=== PATIENT | female | born 1965 | race Caucasian/White ===

== ENCOUNTER 2017-01-27 11:37 | Emergency (ER) | payer OTHER ==
[~2017-01-27] VITALS: Ht 165.1 cm; Wt 91.5 kg
[2017-01-27] MEDS ORDERED: SODIUM CHLORIDE FLUSH 10ML SYR IVF ONE (12:30)
[2017-01-27] MEDS ORDERED: SODIUM CHLORIDE 0.9% 1,000ML IVBOLUS ONE (12:30)
[2017-01-27] MEDS ORDERED: ONDANSETRON 2MG/ML, 2ML IVPush ONE (12:30)
[2017-01-27] MEDS ORDERED: MORPHINE SULFATE 4 MG/ML, 1ML IVPush PRN (13:30)
[2017-01-27 13:36] LABS: BLOOD UREA NITROGEN 16 mg/dL (7-18)
[2017-01-27 13:37] LABS: ASPARTATE AMINO TRANSFERASE 16 U/L (15-37)
[2017-01-27] MEDS ORDERED: ONDANSETRON 2MG/ML, 2ML ONE (14:08)
[2017-01-27] MEDS ORDERED: MORPHINE SULFATE 4 MG/ML, 1ML ONE (14:08)
[2017-01-27] MEDS ORDERED: OMNIPAQUE 350 MG/ML, 100ML BOTTLE ONE (17:35)
[2017-01-27 19:16] VITALS: BP 156/91
== END 2017-01-27 19:19 | disposition home or self-care (01) ==
LOC: ED 19:13
DX: R10.11 Right upper quadrant pain (principal); R10.13 Epigastric pain; R11.0 Nausea; I50.9 Heart failure, unspecified; Z88.2 Allergy status to sulfonamides; Z87.891 Personal history of nicotine dependence
CPT/HCPCS: 36415; 74177; 76700; 80053; 81003; 83690; 84703; 85025; 85610; 96360; 96361; 99285; J7030; Q9967

== ENCOUNTER 2017-01-28 14:13 | Inpatient (IN) | payer OTHER ==
[~2017-01-28] VITALS: Ht 167.6 cm; Wt 94.0 kg
[~2017-01-28 14:13] MED LIST: CEFOTETAN 2 GM ONE; DEXAMETHASONE 4 MG/ML, 1ML ONE; ONDANSETRON 2MG/ML, 2ML ONE; PROPOFOL 10 MG/ML, 20ML ONE; ROCURONIUM 10 MG/ML ONE
[2017-01-28] MEDS ORDERED: ONDANSETRON ODT 4 MG PO ONE (15:00)
[2017-01-28 15:20] LABS: ASPARTATE AMINO TRANSFERASE 13 U/L (15-37); BLOOD UREA NITROGEN 13 mg/dL (7-18)
[2017-01-28] MEDS ORDERED: HYDROmorphone 1 MG/ML, 1ML ONE ×2 (15:20→16:46)
[2017-01-28] MEDS ORDERED: ONDANSETRON ODT 4 MG ONE (15:20)
[2017-01-28] MEDS: HYDROmorphone 1 MG/ML, 1ML IM PRN ×2 (15:25→16:50)
[2017-01-28] MEDS ORDERED: SODIUM CHLORIDE FLUSH 10ML SYR IVF ONE (18:30)
[2017-01-28] MEDS ORDERED: SODIUM CHLORIDE 0.9% 1,000ML IVBOLUS ONE (18:30)
[2017-01-28] MEDS ORDERED: MIDAZOLAM 1 MG/ML, 2ML ONE (19:12)
[2017-01-28] MEDS ORDERED: FENTANYL PF 250 MCG/5ML ONE ×2 (19:12→19:55)
[2017-01-28] MEDS ORDERED: HYDROmorphone 2 MG/ML, 1ML ONE (21:13)
[2017-01-28] MEDS ORDERED: FENTANYL PF 100 MCG/2ML ONE (21:13)
[2017-01-28] MEDS ORDERED: MEPERIDINE/PF 25MG/0.5ML ONE (21:13)
[2017-01-28] MEDS: LABETALOL 5MG/ML, 20ML IVPush PRN ×2 (21:20→21:48)
[2017-01-28] MEDS: CEFOTETAN PMX 1GM/50ML 50 ML IVPB SCH (21:30)
[2017-01-28] MEDS ORDERED: ONDANSETRON 2MG/ML, 2ML IVPush PRN ×2 (21:30→22:00)
[2017-01-28] MEDS ORDERED: ACETAMINOPHEN 325 MG TABLET PO PRN ×2 (21:30→22:00)
[2017-01-28] MEDS ORDERED: PROMETHAZINE 25 MG/ML, 1ML IM PRN (21:30)
[2017-01-28] MEDS ORDERED: ENALAPRILAT 1.25 MG/ML, 2ML IVPush PRN (21:30)
[2017-01-28] MEDS ORDERED: morphine SULFATE 10 MG/ML, 1ML IVPush PRN (21:30)
[2017-01-28] MEDS: FENTANYL PF 100 MCG/2ML IV PRN ×2 (21:36→21:49)
[2017-01-28] MEDS ORDERED: OXYcodone 5 MG/5 ML ORAL.SOL UDC ONE (21:36)
[2017-01-28] MEDS: HYDROmorphone 1 MG/ML, 1ML IV PRN ×3 (21:37→22:02)
[2017-01-28] MEDS ORDERED: HYDROcodone/APAP 7.5-325MG/15ML UDC PO PRN (22:00)
[2017-01-28] MEDS ORDERED: MEPERIDINE/PF 25MG/0.5ML IVPush PRN (22:00)
[2017-01-28] MEDS ORDERED: KETOROLAC 30 MG/1 ML IV PRN (22:00)
[2017-01-28] MEDS ORDERED: KETOROLAC 30 MG/1 ML ONE (22:07)
[2017-01-28 23:05] VITALS: BP 134/85
[2017-01-29] MEDS: D5%-0.45NACL+KCL 20MEQ 1,000 ML IV SCH ×3 (00:46→15:22)
[2017-01-29 01:03] VITALS: BP 116/87
[2017-01-29 03:23] VITALS: BP 118/75
[2017-01-29 05:40] LABS: BLOOD UREA NITROGEN 17 mg/dL (7-18)
[2017-01-29] MEDS: FAMOTIDINE 20 MG/2 ML IVPush SCH ×2 (08:21→21:28)
[2017-01-29] MEDS: CEFOTETAN PMX 1GM/50ML 50 ML IVPB SCH (08:21)
[2017-01-29 08:57] VITALS: BP 126/75
[2017-01-29] MEDS: ENOXAPARIN 30 MG/0.3 ML SQ SCH (15:17)
[2017-01-29 16:00] VITALS: BP 117/75
[2017-01-29] MEDS ORDERED: SODIUM CHLORIDE 0.9%, 500ML IVBOLUS ONE (18:00)
[2017-01-29 19:21] VITALS: BP 120/71
[2017-01-30] MEDS: D5%-0.45NACL+KCL 20MEQ 1,000 ML IV SCH ×4 (00:14→19:40)
[2017-01-30 02:35] VITALS: BP 110/68
[2017-01-30] MEDS: ENOXAPARIN 30 MG/0.3 ML SQ SCH ×2 (03:12→15:32)
[2017-01-30 06:56] VITALS: BP 134/78
[2017-01-30] MEDS: FAMOTIDINE 20 MG/2 ML IVPush SCH ×2 (08:34→21:00)
[2017-01-30 16:00] VITALS: BP 133/75
[2017-01-30 21:26] VITALS: BP 136/74
[2017-01-30] MEDS: FAMOTIDINE 20 MG TABLET PO SCH (22:16)
[2017-01-31] MEDS: D5%-0.45NACL+KCL 20MEQ 1,000 ML IV SCH ×4 (02:20→22:20)
[2017-01-31 02:26] VITALS: BP 129/67
[2017-01-31] MEDS: ENOXAPARIN 30 MG/0.3 ML SQ SCH ×2 (04:17→15:47)
[2017-01-31 07:39] VITALS: BP 121/67
[2017-01-31] MEDS: FAMOTIDINE 20 MG TABLET PO SCH ×2 (08:32→20:26)
[2017-01-31] MEDS: FAMOTIDINE 20 MG/2 ML IVPush SCH ×2 (09:00→20:26)
[2017-01-31 14:30] VITALS: BP 122/67
[2017-01-31] MEDS: CARVEDILOL 12.5 MG TABLET PO SCH (17:53)
[2017-01-31 17:54] VITALS: BP 148/75
[2017-01-31 19:16] VITALS: BP 115/62
[2017-02-01 02:08] VITALS: BP 139/77
[2017-02-01] MEDS: ENOXAPARIN 30 MG/0.3 ML SQ SCH ×2 (03:35→15:48)
[2017-02-01] MEDS: D5%-0.45NACL+KCL 20MEQ 1,000 ML IV SCH ×4 (05:00→19:27)
[2017-02-01] MEDS: CARVEDILOL 12.5 MG TABLET PO SCH ×2 (06:16→18:08)
[2017-02-01 06:56] VITALS: BP 133/73
[2017-02-01] MEDS: FAMOTIDINE 20 MG TABLET PO SCH (09:00)
[2017-02-01] MEDS: FAMOTIDINE 20 MG/2 ML IVPush SCH (09:00)
[2017-02-01] MEDS ORDERED: DIPHENHYDRAMINE 50 MG/ML, 1ML IVPush PRN (10:30)
[2017-02-01] MEDS: MAGNESIUM HYDROXIDE 8%, 30ML UDC PO SCH (10:33)
[2017-02-01] MEDS: DIPHENHYDRAMINE 25 MG CAPSULE PO PRN ×2 (11:14→19:12)
[2017-02-01] MEDS: PANTOPRAZOLE 20MG TABLET PO SCH ×2 (11:14→19:49)
[2017-02-01 15:32] VITALS: BP 145/75
[2017-02-01 18:43] VITALS: BP 141/68
[2017-02-02 01:56] VITALS: BP 128/51
[2017-02-02] MEDS: ENOXAPARIN 30 MG/0.3 ML SQ SCH (02:59)
[2017-02-02] MEDS: D5%-0.45NACL+KCL 20MEQ 1,000 ML IV SCH ×2 (05:22→14:20)
[2017-02-02] MEDS: CARVEDILOL 12.5 MG TABLET PO SCH (05:22)
[2017-02-02 06:50] VITALS: BP 120/63
[2017-02-02] MEDS: MAGNESIUM HYDROXIDE 8%, 30ML UDC PO SCH (07:33)
[2017-02-02] MEDS: PANTOPRAZOLE 20MG TABLET PO SCH (07:33)
[2017-02-02] MEDS: DIPHENHYDRAMINE 25 MG CAPSULE PO PRN (07:34)
[2017-02-02 08:09] VITALS: BP 121/85
[2017-02-02] MEDS ORDERED: CARV12.52 PO (13:40)
[2017-02-02] MEDS ORDERED: HYDR-3241 PO (13:48)
[2017-02-02 14:32] VITALS: BP 135/72
[2017-02-02] MEDS ORDERED: ONDA4TAB7 PO (15:03)
== END 2017-02-02 15:19 | disposition home or self-care (01) | DRG 414 ==
LOC: ED 18:16 → 4NOR 21:14 → DCLOUNGE 02-02 14:40
PROVIDERS: ADMIT Surgery; ATTEND Surgery
PROC: 0DTF0ZZ Resection of Right Large Intestine, Open Approach (ICD-10-PCS; 2017-01-28)
PROC: 0WQF0ZZ Repair Abdominal Wall, Open Approach (ICD-10-PCS; 2017-01-28)
PROC: 0FT40ZZ Resection of Gallbladder, Open Approach (ICD-10-PCS; principal; 2017-01-28 19:00)
DX: K80.10 Calculus of gallbladder with chronic cholecystitis without obstruction (principal); K56.2 Volvulus; I11.0 Hypertensive heart disease with heart failure; I50.9 Heart failure, unspecified; R13.10 Dysphagia, unspecified; Z95.810 Presence of automatic (implantable) cardiac defibrillator; Z88.2 Allergy status to sulfonamides
CPT/HCPCS: 36415; 74176; 80048; 80053; 81001; 83690; 85025; 87086; 88304; 88307; 93005; 96372; J1100; J1170; J1650; J1885; J2250; J2270; J2405; J2704; J3010; Q0162; J3480; J7030; J7040; Q0163; S0028; S0074

== ENCOUNTER 2018-09-22 03:15 | Inpatient (IN) | payer OTHER ==
[2018-09-21 13:47] LABS: MICROSCOPIC INDICATED
[2018-09-21 14:02] LABS: BASOPHILS # (AUTO) 0.03 x10^3/uL (0-0.1); BASOPHILS % (AUTO) 1 % (0-1); EOSINOPHILS # (AUTO) 0.13 x10^3/uL (0-0.4); EOSINOPHILS % (AUTO) 4 % (1-7); LYMPHOCYTES # (AUTO) 0.86 x10^3/uL (1-3.4); LYMPHOCYTES % (AUTO) 24 % (22-44); MD NO; MEAN CORPUSCULAR HEMOGLOBIN 26.2 pg (27.0-34.8); MEAN CORPUSCULAR HGB CONC 33.3 g/dL (32.4-35.8); MEAN CORPUSCULAR VOLUME 78.7 fL (80-100); MEAN PLATELET VOLUME 9.1 fL (7.4-10.4); MONOCYTES # (AUTO) 0.64 x10^3/uL (0.2-0.8); MONOCYTES % (AUTO) 18 % (2-9); NEUTROPHILS # (AUTO) 1.86 x10^3/uL (1.8-6.8); NEUTROPHILS % (AUTO) 53 % (42-75); PLATELET COUNT 122 x10^3/uL (130-400); RED BLOOD COUNT 4.77 x10^6/uL (3.82-5.3); RED CELL DISTRIBUTION WIDTH 19.6 % (9.6-15.2)
[2018-09-21 14:12] LABS: PROTHROMBIN TIME 10.5 Seconds (9.6-11.5)
[2018-09-21 14:14] LABS: ALANINE AMINOTRANSFERASE 25 U/L (12-78); ALBUMIN 3.6 g/dL (3.4-5.0); ANION GAP 6 mmol/L (5-15); CALCIUM 8.5 mg/dL (8.5-10.1); CHLORIDE 108 mmol/L (98-107); CREATININE 0.89 mg/dL (0.55-1.02)
[2018-09-21 14:16] LABS: ALKALINE PHOSPHATASE 126 U/L (45-117); BILIRUBIN,TOTAL 1.1 mg/dL (0.2-1.0); TOTAL PROTEIN 7.4 g/dL (6.4-8.2)
[2018-09-21 14:18] LABS: HEMOGLOBIN A1C 5.8 % (4.2-6.3)
[2018-09-21 14:24] LABS: CULTURE INDICATED? NO
[~2018-09-22] VITALS: Ht 162.6 cm; Wt 105.7 kg
[~2018-09-22 03:15] MED LIST changes: +ASPI81TA45 PO; +CARV12.52 PO; -CEFOTETAN 2 GM ONE; +CLOP75TA52 PO; -DEXAMETHASONE 4 MG/ML, 1ML ONE; +DIGO250T PO; +FURO20TA3 PO; +HYDR-3241 PO; +LISI-167 PO; +ONDA4TAB7 PO; -ONDANSETRON 2MG/ML, 2ML ONE; +PRAV20TA2 PO; -PROPOFOL 10 MG/ML, 20ML ONE; -ROCURONIUM 10 MG/ML ONE; +SPIR25TA5 PO; +VITA1TAB19 PO
[2018-09-22] MEDS ORDERED: INSULIN LISPRO 100 UNITS/ML, PEN SQ-INSULIN SCH (04:00)
[2018-09-22] MEDS ORDERED: CHLORHEXIDINE 15 ML UDC MM SCH (04:00)
[2018-09-22 05:11] VITALS: BP_SYST 116; BP_SYST 133; BP_DIAS 62; BP_DIAS 79
[2018-09-22 07:00] VITALS: BP 115/72
[2018-09-22] MEDS ORDERED: MANNITOL PMX 20% 500 ML IVPB PRN (07:30)
[2018-09-22] MEDS ORDERED: POTASSIUM CHLORIDE 80 MEQ, SODIUM BICARBONATE 8.4% 10 MEQ, MAGNESIUM SULFATE 0.5 GM, LI... IV PRN (07:30)
[2018-09-22] MEDS ORDERED: REGULAR INSULIN 62.5 UNITS in SODIUM CHLORIDE 0.9% 249.375 ML IV PRN ×2 (07:30→11:36)
[2018-09-22] MEDS ORDERED: EPINEPHRINE 2 MG in SODIUM CHLORIDE 0.9% 248 ML IV SCH (07:30)
[2018-09-22] MEDS ORDERED: DEXMEDETOMIDINE 200 MCG in SODIUM CHLORIDE 0.9% 48 ML IV SCH (07:30)
[2018-09-22] MEDS ORDERED: VANCOMYCIN 1,600 MG in SODIUM CHLORIDE 0.9% 250 ML IV PRN (07:30)
[2018-09-22] MEDS ORDERED: ALBUMIN HUMAN 5% 500 ML IV PRN (07:30)
[2018-09-22] MEDS ORDERED: PHENYLEPHRINE 10 MG in SODIUM CHLORIDE 0.9% 249 ML IV PRN ×2 (07:30→11:36)
[2018-09-22] MEDS ORDERED: CEFUROXIME 1.5 GM in SODIUM CHLORIDE 0.9% 50 ML IVPB PRN (07:30)
[2018-09-22] MEDS ORDERED: MIDAZOLAM 10MG/2 ML ONE (07:57)
[2018-09-22] MEDS ORDERED: FENTANYL PF 250 MCG/5ML ONE ×4 (07:57→07:58)
[2018-09-22] MEDS ORDERED: CALCIUM CHLORIDE 10%, 10ML SYR ONE (08:00)
[2018-09-22] MEDS ORDERED: ROCURONIUM 10MG/ML,5ML ONE ×3 (08:03→09:55)
[2018-09-22] MEDS: DOCUSATE 100 MG CAPSULE PO SCH ×2 (09:00→20:54)
[2018-09-22] MEDS: SODIUM CHLORIDE FLUSH 10ML SYR IVF SCH ×2 (09:00→20:54)
[2018-09-22] MEDS ORDERED: MUPIROCIN OINT 2%, 22GM TP SCH (09:00)
[2018-09-22] MEDS ORDERED: PROTAMINE SULFATE 10 MG/ML, 25ML ONE ×2 (09:55)
[2018-09-22] MEDS ORDERED: AMINOCAPROIC ACID 250 MG/ML, 20ML ONE ×2 (09:55)
[2018-09-22] MEDS ORDERED: PROPOFOL 10 MG/ML, 20ML ONE (10:00)
[2018-09-22] MEDS ORDERED: VASOPRESSIN 50 UNIT in SODIUM CHLORIDE 0.9% 247.5 ML IV PRN (11:36)
[2018-09-22] MEDS ORDERED: DEXMEDETOMIDINE 200 MCG in SODIUM CHLORIDE 0.9% 48 ML IV PRN (11:36)
[2018-09-22] MEDS ORDERED: SODIUM CHLORIDE 0.9% 1,000 ML IV PRN (11:36)
[2018-09-22] MEDS ORDERED: DOBUTAMINE 250 MG in SODIUM CHLORIDE 0.9% 230 ML IV PRN (11:36)
[2018-09-22] MEDS ORDERED: NITROGLYCERIN/D5W PMX 250 ML IV PRN (11:36)
[2018-09-22] MEDS ORDERED: ALBUMIN HUMAN 25% 50 ML ONE (11:52)
[2018-09-22] MEDS ORDERED: HEPARIN 1,000 UNITS/ML, 30ML ONE (11:52)
[2018-09-22] MEDS ORDERED: methylPREDNISolone SOD SUCC 125 MG/2 ML ONE (11:52)
[2018-09-22] MEDS ORDERED: LIDOCAINE 2% 100MG/5ML SYRINGE ONE (11:52)
[2018-09-22] MEDS ORDERED: SODIUM BICARBONATE 1 MEQ/ML, 50ML VIAL ONE (11:52)
[2018-09-22] MEDS ORDERED: PROCHLORPERAZINE 5 MG/ML, 2ML IVPush PRN (12:00)
[2018-09-22] MEDS ORDERED: DEXTROSE 50%, 50ML SYRINGE IVPush PRN (12:00)
[2018-09-22] MEDS: MAGNESIUM SULFATE 1 GM in SODIUM CHLORIDE 0.9% 50 ML IVPB SCH ×2 (12:00→13:07)
[2018-09-22] MEDS: KSCALE TO 4.5 IV SCH ×2 (12:00→17:41)
[2018-09-22] MEDS ORDERED: CEFUROXIME 1.5 GM in SODIUM CHLORIDE 0.9% 50 ML IVPB SCH (12:00)
[2018-09-22] MEDS ORDERED: BISACODYL 10 MG SUPP PR PRN (12:00)
[2018-09-22] MEDS ORDERED: LACTATED RINGERS 1,000 ML IV PRN (12:00)
[2018-09-22] MEDS ORDERED: ONDANSETRON 2MG/ML, 2ML IVPush PRN (12:00)
[2018-09-22] MEDS ORDERED: BISACODYL 5 MG EC TABLET PO PRN (12:00)
[2018-09-22] MEDS ORDERED: SODIUM BICARB 8.4%, 50ML SYRINGE IV PRN (12:00)
[2018-09-22] MEDS ORDERED: GLUCAGON 1 MG IM PRN (12:00)
[2018-09-22] MEDS ORDERED: DEXTROSE 4 GM TAB.CHEW PO PRN (12:00)
[2018-09-22] MEDS ORDERED: ACETAMINOPHEN 325 MG TABLET PO PRN (12:00)
[2018-09-22] MEDS ORDERED: ACETAMINOPHEN 650 MG SUPP PR PRN (12:00)
[2018-09-22 12:18] LABS: GLUCOSE BY BLOOD GAS ANALYZER 114 mg/dL (70-110); HEMOGLOBIN BY BLOOD GAS ANALYZ 11.8 g/dL (14.0-18.0); POTASSIUM BY BLOOD GAS ANALYZR 3.5 mmol/L (3.6-5.5)
[2018-09-22 12:41] LABS: INTERNATIONAL NORMALIZED RATIO 1.26 (0.93-1.1); PROTHROMBIN TIME 13.1 Seconds (9.6-11.5)
[2018-09-22] MEDS ORDERED: POTASSIUM CHLORIDE PMX 100 ML IV ONE (13:30)
[2018-09-22] MEDS: EPINEPHRINE 2 MG in SODIUM CHLORIDE 0.9% 248 ML IV PRN (14:42)
[2018-09-22] MEDS: INSULIN LISPRO 100 UNITS/ML, PEN SQ-INSULIN SCH ×2 (17:32→21:16)
[2018-09-22] MEDS: OXYcodone IR 5MG TABLET PO PRN ×2 (17:43→19:13)
[2018-09-22] MEDS: VANCOMYCIN 1,600 MG in SODIUM CHLORIDE 0.9% 250 ML IVPB SCH (18:44)
[2018-09-22] MEDS: HYDROcodone/APAP 5/325 TABLET PO PRN (20:54)
[2018-09-22] MEDS: CEFUROXIME 1.5 GM in SODIUM CHLORIDE 0.9% 50 ML IVPB SCH (21:26)
[2018-09-23] MEDS: EPINEPHRINE 2 MG in SODIUM CHLORIDE 0.9% 248 ML IV PRN (00:24)
[2018-09-23] MEDS: INSULIN LISPRO 100 UNITS/ML, PEN SQ-INSULIN SCH ×6 (00:25→20:43)
[2018-09-23] MEDS: HYDROcodone/APAP 5/325 TABLET PO PRN ×2 (01:18→05:36)
[2018-09-23] MEDS: FENTANYL PF 100 MCG/2ML IVPush PRN ×2 (03:13→06:33)
[2018-09-23 05:49] LABS: BASOPHILS # (AUTO) 0.01 x10^3/uL (0-0.1); BASOPHILS % (AUTO) 0 % (0-1); EOSINOPHILS % (AUTO) 0 % (1-7); LYMPHOCYTES # (AUTO) 1.07 x10^3/uL (1-3.4); LYMPHOCYTES % (AUTO) 9 % (22-44); MD NO; MEAN CORPUSCULAR HEMOGLOBIN 26.5 pg (27.0-34.8); MEAN CORPUSCULAR HGB CONC 33.2 g/dL (32.4-35.8); MEAN CORPUSCULAR VOLUME 79.9 fL (80-100); MEAN PLATELET VOLUME 9.2 fL (7.4-10.4); MONOCYTES # (AUTO) 1.07 x10^3/uL (0.2-0.8); MONOCYTES % (AUTO) 8 % (2-9); NEUTROPHILS # (AUTO) 10.52 x10^3/uL (1.8-6.8); NEUTROPHILS % (AUTO) 83 % (42-75); PLATELET COUNT 148 x10^3/uL (130-400); RED BLOOD COUNT 4.45 x10^6/uL (3.82-5.3); RED CELL DISTRIBUTION WIDTH 19.5 % (9.6-15.2)
[2018-09-23 05:53] LABS: INTERNATIONAL NORMALIZED RATIO 1.07 (0.93-1.1); PROTHROMBIN TIME 11.2 Seconds (9.6-11.5)
[2018-09-23 05:54] LABS: ALBUMIN 3.2 g/dL (3.4-5.0); ANION GAP 7 mmol/L (5-15); CALCIUM 8.1 mg/dL (8.5-10.1); CHLORIDE 110 mmol/L (98-107); CREATININE 0.82 mg/dL (0.55-1.02)
[2018-09-23] MEDS: KSCALE TO 4.5 IV SCH ×2 (06:00)
[2018-09-23] MEDS ORDERED: KETOROLAC 30 MG/1 ML IM PRN (07:30)
[2018-09-23] MEDS: morphine SULFATE 10 MG/ML, 1ML IVPush PRN ×2 (07:33→17:18)
[2018-09-23] MEDS ORDERED: MAGNESIUM HYDROXIDE 8%, 30ML UDC PO PRN (08:00)
[2018-09-23] MEDS: VANCOMYCIN 1,600 MG in SODIUM CHLORIDE 0.9% 250 ML IVPB SCH (08:57)
[2018-09-23] MEDS: WARFARIN MODERAT DOSE PROTOCOL XX SCH (09:00)
[2018-09-23] MEDS: WARFARIN BIOPROSTHETIC VALVE PROTOCOL 2-3 XX SCH (09:00)
[2018-09-23] MEDS: DIGOXIN 0.25 MG TABLET PO SCH (09:11)
[2018-09-23] MEDS: SPIRONOLACTONE 25 MG TABLET PO SCH (09:11)
[2018-09-23] MEDS: DOCUSATE 100 MG CAPSULE PO SCH ×2 (09:11→20:44)
[2018-09-23] MEDS: POTASSIUM CHLORIDE 10 MEQ TABLET.ER PO SCH ×2 (09:11→16:49)
[2018-09-23] MEDS: FUROSEMIDE 20 MG/2 ML IV SCH ×2 (09:11→16:49)
[2018-09-23] MEDS: OXYcodone IR 5MG TABLET PO PRN ×5 (09:12→23:35)
[2018-09-23] MEDS: ASPIRIN 81 MG TABLET EC PO SCH (09:15)
[2018-09-23] MEDS: CARVEDILOL 3.125 MG TABLET PO SCH ×2 (09:15→16:45)
[2018-09-23] MEDS: CEFUROXIME 1.5 GM in SODIUM CHLORIDE 0.9% 50 ML IVPB SCH (10:13)
[2018-09-23] MEDS: MAGNESIUM SULFATE 1 GM in SODIUM CHLORIDE 0.9% 50 ML IVPB SCH (11:55)
[2018-09-23] MEDS ORDERED: WARFARIN 7.5 MG TABLET PO-COUM ONE (18:00)
[2018-09-23] MEDS: PRAVASTATIN 20 MG TABLET PO SCH (20:44)
[2018-09-23] MEDS: SODIUM CHLORIDE FLUSH 10ML SYR IVF SCH (20:44)
[2018-09-24] MEDS: OXYcodone IR 5MG TABLET PO PRN ×6 (02:30→22:28)
[2018-09-24] MEDS: CARVEDILOL 3.125 MG TABLET PO SCH ×2 (05:26→17:42)
[2018-09-24 05:38] LABS: INTERNATIONAL NORMALIZED RATIO 1.02 (0.93-1.1); PROTHROMBIN TIME 10.7 Seconds (9.6-11.5)
[2018-09-24 05:43] LABS: ANION GAP 5 mmol/L (5-15); CHLORIDE 102 mmol/L (98-107); CREATININE 0.76 mg/dL (0.55-1.02)
[2018-09-24 06:32] LABS: MEAN CORPUSCULAR HEMOGLOBIN 25.7 pg (27.0-34.8); MEAN CORPUSCULAR HGB CONC 32.4 g/dL (32.4-35.8); MEAN CORPUSCULAR VOLUME 79.5 fL (80-100); MEAN PLATELET VOLUME 9.2 fL (7.4-10.4); PLATELET COUNT 90 x10^3/uL (130-400); RED BLOOD COUNT 4.09 x10^6/uL (3.82-5.3); RED CELL DISTRIBUTION WIDTH 20.3 % (9.6-15.2)
[2018-09-24 06:33] LABS: MD SCAN
[2018-09-24 06:34] LABS: BASOPHILS # (AUTO) 0.03 x10^3/uL (0-0.1); BASOPHILS % (AUTO) 0 % (0-1); EOSINOPHILS # (AUTO) 0.03 x10^3/uL (0-0.4); EOSINOPHILS % (AUTO) 1 % (1-7); LYMPHOCYTES # (AUTO) 0.95 x10^3/uL (1-3.4); LYMPHOCYTES % (AUTO) 14 % (22-44); MONOCYTES # (AUTO) 0.56 x10^3/uL (0.2-0.8); MONOCYTES % (AUTO) 8 % (2-9); NEUTROPHILS # (AUTO) 5.42 x10^3/uL (1.8-6.8); NEUTROPHILS % (AUTO) 78 % (42-75)
[2018-09-24] MEDS: INSULIN LISPRO 100 UNITS/ML, PEN SQ-INSULIN SCH ×4 (07:00→20:30)
[2018-09-24] MEDS: WARFARIN BIOPROSTHETIC VALVE PROTOCOL 2-3 XX SCH (08:35)
[2018-09-24] MEDS: WARFARIN MODERAT DOSE PROTOCOL XX SCH (08:35)
[2018-09-24] MEDS ORDERED: ENOXAPARIN 40 MG/0.4 ML SQ SCH (09:00)
[2018-09-24] MEDS: POTASSIUM CHLORIDE 10 MEQ TABLET.ER PO SCH ×2 (09:25→17:42)
[2018-09-24] MEDS: DOCUSATE 100 MG CAPSULE PO SCH ×2 (09:25→20:29)
[2018-09-24] MEDS: LISINOPRIL 5 MG TABLET PO SCH (09:25)
[2018-09-24] MEDS: SPIRONOLACTONE 25 MG TABLET PO SCH (09:25)
[2018-09-24] MEDS: ASPIRIN 81 MG TABLET EC PO SCH (09:26)
[2018-09-24] MEDS: DIGOXIN 0.25 MG TABLET PO SCH (09:26)
[2018-09-24] MEDS: FUROSEMIDE 20 MG/2 ML IV SCH ×2 (09:26→17:42)
[2018-09-24] MEDS: SODIUM CHLORIDE FLUSH 10ML SYR IVF SCH ×2 (09:27→20:30)
[2018-09-24 12:44] VITALS: BP 94/65
[2018-09-24] MEDS: MAGNESIUM SULFATE 1 GM in SODIUM CHLORIDE 0.9% 50 ML IVPB SCH (13:04)
[2018-09-24 17:40] VITALS: BP 120/67
[2018-09-24] MEDS ORDERED: WARFARIN 7.5 MG TABLET PO-COUM ONE (18:00)
[2018-09-24 20:06] VITALS: BP 97/58
[2018-09-24] MEDS: PRAVASTATIN 20 MG TABLET PO SCH (20:29)
[2018-09-25 01:31] VITALS: BP 108/68
[2018-09-25] MEDS: OXYcodone IR 5MG TABLET PO PRN ×5 (01:35→21:11)
[2018-09-25 05:35] VITALS: BP 111/71
[2018-09-25] MEDS: CARVEDILOL 3.125 MG TABLET PO SCH ×2 (05:36→17:33)
[2018-09-25 06:17] LABS: INTERNATIONAL NORMALIZED RATIO 1.08 (0.93-1.1); PROTHROMBIN TIME 11.3 Seconds (9.6-11.5)
[2018-09-25 06:19] LABS: MEAN CORPUSCULAR HEMOGLOBIN 26.8 pg (27.0-34.8); MEAN CORPUSCULAR HGB CONC 33.9 g/dL (32.4-35.8); MEAN CORPUSCULAR VOLUME 79.2 fL (80-100); MEAN PLATELET VOLUME 9.8 fL (7.4-10.4); PLATELET COUNT 86 x10^3/uL (130-400); RED BLOOD COUNT 3.73 x10^6/uL (3.82-5.3); RED CELL DISTRIBUTION WIDTH 18.8 % (9.6-15.2)
[2018-09-25 06:21] LABS: ANION GAP 6 mmol/L (5-15); CALCIUM 7.9 mg/dL (8.5-10.1); CHLORIDE 100 mmol/L (98-107); CREATININE 0.78 mg/dL (0.55-1.02)
[2018-09-25 06:34] LABS: BASOPHILS # (AUTO) 0.02 x10^3/uL (0-0.1); BASOPHILS % (AUTO) 0 % (0-1); EOSINOPHILS # (AUTO) 0.13 x10^3/uL (0-0.4); EOSINOPHILS % (AUTO) 2 % (1-7); LYMPHOCYTES # (AUTO) 1.04 x10^3/uL (1-3.4); LYMPHOCYTES % (AUTO) 19 % (22-44); MD SCAN; MONOCYTES # (AUTO) 0.51 x10^3/uL (0.2-0.8); MONOCYTES % (AUTO) 9 % (2-9); NEUTROPHILS # (AUTO) 3.87 x10^3/uL (1.8-6.8); NEUTROPHILS % (AUTO) 70 % (42-75)
[2018-09-25] MEDS: INSULIN LISPRO 100 UNITS/ML, PEN SQ-INSULIN SCH ×3 (07:00→17:19)
[2018-09-25 07:19] VITALS: BP 117/74
[2018-09-25] MEDS ORDERED: FUROSEMIDE 40 MG/4 ML ONE (08:55)
[2018-09-25] MEDS: WARFARIN BIOPROSTHETIC VALVE PROTOCOL 2-3 XX SCH (09:00)
[2018-09-25] MEDS: FUROSEMIDE 20 MG/2 ML IV SCH ×2 (09:01→17:32)
[2018-09-25] MEDS: DIGOXIN 0.25 MG TABLET PO SCH (09:03)
[2018-09-25] MEDS: SODIUM CHLORIDE FLUSH 10ML SYR IVF SCH ×2 (09:03→21:10)
[2018-09-25] MEDS: WARFARIN MODERAT DOSE PROTOCOL XX SCH (09:04)
[2018-09-25] MEDS: SPIRONOLACTONE 25 MG TABLET PO SCH (09:04)
[2018-09-25] MEDS: LISINOPRIL 5 MG TABLET PO SCH (09:04)
[2018-09-25] MEDS: DOCUSATE 100 MG CAPSULE PO SCH ×2 (09:04→21:10)
[2018-09-25] MEDS: POTASSIUM CHLORIDE 10 MEQ TABLET.ER PO SCH ×2 (09:04→17:33)
[2018-09-25] MEDS: ASPIRIN 81 MG TABLET EC PO SCH (09:04)
[2018-09-25 13:11] VITALS: BP 132/81
[2018-09-25 17:28] VITALS: BP 132/77
[2018-09-25] MEDS ORDERED: WARFARIN 5 MG TABLET PO-COUM ONE (18:00)
[2018-09-25 19:11] VITALS: BP 108/71
[2018-09-25] MEDS: PRAVASTATIN 20 MG TABLET PO SCH (21:11)
[2018-09-26 01:52] VITALS: BP 95/58
[2018-09-26] MEDS: OXYcodone IR 5MG TABLET PO PRN ×2 (03:44→18:08)
[2018-09-26 05:33] LABS: BASOPHILS # (AUTO) 0.02 x10^3/uL (0-0.1); BASOPHILS % (AUTO) 1 % (0-1); EOSINOPHILS # (AUTO) 0.21 x10^3/uL (0-0.4); EOSINOPHILS % (AUTO) 4 % (1-7); INTERNATIONAL NORMALIZED RATIO 1.1 (0.93-1.1); LYMPHOCYTES # (AUTO) 1.18 x10^3/uL (1-3.4); LYMPHOCYTES % (AUTO) 23 % (22-44); MD NO; MEAN CORPUSCULAR HEMOGLOBIN 25.8 pg (27.0-34.8); MEAN CORPUSCULAR HGB CONC 32.3 g/dL (32.4-35.8); MEAN CORPUSCULAR VOLUME 79.6 fL (80-100); MEAN PLATELET VOLUME 9.9 fL (7.4-10.4); MONOCYTES # (AUTO) 0.52 x10^3/uL (0.2-0.8); MONOCYTES % (AUTO) 10 % (2-9); NEUTROPHILS % (AUTO) 62 % (42-75); PLATELET COUNT 106 x10^3/uL (130-400); PROTHROMBIN TIME 11.5 Seconds (9.6-11.5); RED BLOOD COUNT 3.85 x10^6/uL (3.82-5.3); RED CELL DISTRIBUTION WIDTH 19.2 % (9.6-15.2)
[2018-09-26 05:41] VITALS: BP 106/70
[2018-09-26 05:41] LABS: ANION GAP 4 mmol/L (5-15); CHLORIDE 101 mmol/L (98-107)
[2018-09-26 05:42] LABS: CREATININE 0.72 mg/dL (0.55-1.02)
[2018-09-26] MEDS: CARVEDILOL 3.125 MG TABLET PO SCH ×2 (05:43→18:10)
[2018-09-26 07:22] VITALS: BP 115/71
[2018-09-26] MEDS: FUROSEMIDE 20 MG/2 ML IV SCH ×2 (08:50→18:10)
[2018-09-26] MEDS: POTASSIUM CHLORIDE 10 MEQ TABLET.ER PO SCH ×2 (08:50→18:09)
[2018-09-26] MEDS: DOCUSATE 100 MG CAPSULE PO SCH ×2 (08:50→20:24)
[2018-09-26] MEDS: SODIUM CHLORIDE FLUSH 10ML SYR IVF SCH ×2 (08:51→20:24)
[2018-09-26] MEDS: DIGOXIN 0.25 MG TABLET PO SCH (08:51)
[2018-09-26] MEDS: ASPIRIN 81 MG TABLET EC PO SCH (08:51)
[2018-09-26] MEDS: LISINOPRIL 5 MG TABLET PO SCH (08:51)
[2018-09-26] MEDS: SPIRONOLACTONE 25 MG TABLET PO SCH (08:51)
[2018-09-26] MEDS: WARFARIN BIOPROSTHETIC VALVE PROTOCOL 2-3 XX SCH (09:53)
[2018-09-26] MEDS: WARFARIN MODERAT DOSE PROTOCOL XX SCH (09:53)
[2018-09-26 13:55] VITALS: BP 117/72
[2018-09-26 17:50] VITALS: BP 128/71
[2018-09-26] MEDS ORDERED: WARFARIN 5 MG TABLET PO-COUM ONE (17:58)
[2018-09-26] MEDS ORDERED: WARFARIN 10 MG TABLET PO-COUM SCH (18:00)
[2018-09-26] MEDS: PRAVASTATIN 20 MG TABLET PO SCH (20:24)
[2018-09-26 20:28] VITALS: BP 137/73
[2018-09-27] MEDS: OXYcodone IR 5MG TABLET PO PRN ×2 (00:43→04:24)
[2018-09-27 02:15] VITALS: BP 101/66
[2018-09-27] MEDS: CARVEDILOL 3.125 MG TABLET PO SCH (06:03)
[2018-09-27 06:50] VITALS: BP 111/64
[2018-09-27 07:06] LABS: BASOPHILS # (AUTO) 0.01 x10^3/uL (0-0.1); BASOPHILS % (AUTO) 0 % (0-1); EOSINOPHILS # (AUTO) 0.22 x10^3/uL (0-0.4); EOSINOPHILS % (AUTO) 6 % (1-7); LYMPHOCYTES # (AUTO) 0.84 x10^3/uL (1-3.4); LYMPHOCYTES % (AUTO) 22 % (22-44); MD NO; MEAN CORPUSCULAR HEMOGLOBIN 26.8 pg (27.0-34.8); MEAN CORPUSCULAR HGB CONC 33.5 g/dL (32.4-35.8); MEAN PLATELET VOLUME 9.5 fL (7.4-10.4); MONOCYTES % (AUTO) 10 % (2-9); NEUTROPHILS # (AUTO) 2.37 x10^3/uL (1.8-6.8); NEUTROPHILS % (AUTO) 62 % (42-75); PLATELET COUNT 114 x10^3/uL (130-400); RED BLOOD COUNT 3.88 x10^6/uL (3.82-5.3); RED CELL DISTRIBUTION WIDTH 19.6 % (9.6-15.2)
[2018-09-27 07:08] LABS: ANION GAP 6 mmol/L (5-15); CHLORIDE 102 mmol/L (98-107); CREATININE 0.87 mg/dL (0.55-1.02)
[2018-09-27] MEDS ORDERED: WARF10TA PO-COUM (07:42)
[2018-09-27] MEDS ORDERED: OXYC5TAB3 PO (07:42)
[2018-09-27] MEDS ORDERED: ASPI81TA45 PO (07:42)
[2018-09-27] MEDS ORDERED: CARV3.1212 PO (07:42)
[2018-09-27] MEDS: FUROSEMIDE 20 MG/2 ML IV SCH (07:47)
[2018-09-27] MEDS: SPIRONOLACTONE 25 MG TABLET PO SCH (07:48)
[2018-09-27] MEDS: SODIUM CHLORIDE FLUSH 10ML SYR IVF SCH (07:48)
[2018-09-27] MEDS: DIGOXIN 0.25 MG TABLET PO SCH (07:48)
[2018-09-27] MEDS: DOCUSATE 100 MG CAPSULE PO SCH (07:48)
[2018-09-27] MEDS ORDERED: POTA10TA5 PO (07:48)
[2018-09-27] MEDS: ASPIRIN 81 MG TABLET EC PO SCH (07:48)
[2018-09-27] MEDS: LISINOPRIL 5 MG TABLET PO SCH (07:48)
[2018-09-27] MEDS: POTASSIUM CHLORIDE 10 MEQ TABLET.ER PO SCH (07:48)
[2018-09-27 07:55] LABS: INTERNATIONAL NORMALIZED RATIO 1.27 (0.93-1.1); PROTHROMBIN TIME 13.2 Seconds (9.6-11.5)
== END 2018-09-27 09:50 | disposition home health service (06) | DRG 219 ==
LOC: 5SO 03:15 → CSU 08:03 → 5SO 09-24 11:40 → DCLOUNGE 09-27 09:25
PROVIDERS: ADMIT Thoracic Surgery (Cardiothoracic Vascular Surgery); ATTEND Thoracic Surgery (Cardiothoracic Vascular Surgery)
PROC: 5A1221Z Performance of Cardiac Output, Continuous (ICD-10-PCS; 2018-09-22)
PROC: 03HY32Z Insertion of Monitoring Device into Upper Artery, Percutaneous Approach (ICD-10-PCS; 2018-09-22)
PROC: 02HQ33Z Insertion of Infusion Device into Right Pulmonary Artery, Percutaneous Approach (ICD-10-PCS; 2018-09-22)
PROC: B34SZZZ Ultrasonography of Right Pulmonary Artery (ICD-10-PCS; 2018-09-22)
PROC: B24BZZ4 Ultrasonography of Heart with Aorta, Transesophageal (ICD-10-PCS; 2018-09-22)
PROC: 3E080GC Introduction of Other Therapeutic Substance into Heart, Open Approach (ICD-10-PCS; 2018-09-22)
PROC: 02UG0JZ Supplement Mitral Valve with Synthetic Substitute, Open Approach (ICD-10-PCS; principal; 2018-09-22 08:30)
DX: I34.0 Nonrheumatic mitral (valve) insufficiency (principal); I50.43 Acute on chronic combined systolic (congestive) and diastolic (congestive) heart failure; I42.0 Dilated cardiomyopathy; I50.42 Chronic combined systolic (congestive) and diastolic (congestive) heart failure; J98.11 Atelectasis; Z68.41 Body mass index [BMI] 40.0-44.9, adult; I11.0 Hypertensive heart disease with heart failure; I27.20 Pulmonary hypertension, unspecified; I73.9 Peripheral vascular disease, unspecified; Z87.891 Personal history of nicotine dependence; Z95.810 Presence of automatic (implantable) cardiac defibrillator; E66.9 Obesity, unspecified; Z90.49 Acquired absence of other specified parts of digestive tract
CPT/HCPCS: 36415; 36600; S0017; 71045; 71046; 80048; 80053; 81001; 82040; 82330; 82800; 82803; 82810; 82947; 82962; 83036; 83735; 84132; 84295; 85014; 85018; 85025; 85049; 85347; 85610; 85730; 86850; 86900; 86923; 87081; 93005; 93312; 93321; 93325; 93880; 94002; 94150; G0378; J0697; J1644; J1815; J1885; J2250; J2704; J2720; J3010; J3370; J3475; J3480; J3490; P9045; P9047; C1751; C1760; J0171; J1940; J2270; J2370; J2930; J7050; J7120